=== PATIENT | female | born 1955 | race Caucasian/White ===

== ENCOUNTER 2016-12-11 19:20 | Inpatient (IN) | payer BC ==
--- NOTE | ~2016-12-11 | HP ---
History And Physical [place] [id number] [facility] [place]. [address] NAME: MARYSOL CLARK : 51 STATUS : DIS IN PAT#: [id number] AGE: 61 ADM/REG DATE : 12/11/16 MR#: [id number] REPORT SERV DATE: 01/17/17 DICTATED BY: EMILY ZACARIAS DATE: 01/17/17 REPORT STATUS : Draft TRANSCRIBED BY: ANANYA DATE: 01/17/17 DATE OF ADMISSION: 12/11/2016 REASON FOR ADMISSION: Hypotension and sepsis. HISTORY OF PRESENT ILLNESS: Ms. Clark is a 61-year-old woman with multiple medical problems including breast cancer with recurrent metastases, who presented to the hospital because of abdominal pain and hypotension. She was found to be hypotensive in the emergency department. She had been scheduled to start chemotherapy and was brought into the emergency department because of decreased alertness. She actually became more alert after a few boluses of fluids. PAST MEDICAL HISTORY: Significant for widely metastatic breast cancer, initially diagnosed in 2006. Pelvic obstruction, urinary obstruction, and recurrent urinary tract infections. SOCIAL HISTORY: Negative for tobacco abuse or alcohol abuse. FAMILY HISTORY: Significant for coronary artery disease. REVIEW OF SYSTEMS: Review of 10 systems was performed with help from her family who were at the bedside and is positive for what was noted above. PHYSICAL EXAMINATION: GENERAL: On exam, she appears chronically ill. Awake and alert. HEENT: Normocephalic and atraumatic. NECK: Supple. No lymphadenopathy. No JVD. CHEST: Symmetric with good expansion bilaterally. She is tachycardic with low blood pressure. LUNGS: Clear to auscultation and percussion bilaterally. CARDIOVASCULAR: She has S1 and S2, which are regular rate and rhythm. ABDOMEN: Benign. EXTREMITIES: She has no edema. No clubbing. No cyanosis. ASSESSMENT AND PLAN: Sepsis. The patient has urinary tract infection with hypotension in the setting of immunocompromise with systemic cytotoxic therapy and metastatic breast cancer. She has been started on broad-spectrum antibiotic therapy and aggressive fluid resuscitation. She has evidence already of early acute kidney injury in addition to her chronic kidney disease. So, we have requested a nephrology consult. Care was discussed with her family. CARI/ANANYA Emily History And Physical [address] [place]. [address] NAME: MARYSOL CLARK : 51 STATUS : DIS IN PAT#: [id number] AGE: 61 ADM/REG DATE : 12/11/16 MR#: [id number] REPORT SERV DATE: 01/17/17 DICTATED BY: EMILY ZACARIAS DATE: 01/17/17 REPORT STATUS : Draft TRANSCRIBED BY: MODL DATE: 01/17/17 Jorje Zacarias / [id number] CC: Jorje Ball M.D.
--- NOTE | ~2016-12-11 | CN ---
Consultation Report [facility] [address] [place]. [address] NAME: MARYSOL CLARK : 51 STATUS : ADM IN PAT#: [id number] AGE: 61 ADM/REG DATE : 12/11/16 MR#: [id number] REPORT SERV DATE: 12/12/16 DICTATED BY: OMERO MATUTE DATE: 12/12/16 REPORT STATUS : Draft TRANSCRIBED BY: MODL DATE: 12/12/16 CONSULTATION DATE OF CONSULTATION: 12/12/2016 CONSULTING GROUP: [facility]. SUBJECTIVE/CHIEF COMPLAINT: History of breast cancer, metastatic to the liver and brain, lactic acidosis, urosepsis. HISTORY OF PRESENT ILLNESS: Ms. Clark is a 61-year-old female with breast cancer in 2006, patient of Dr. Danielle Todd. According to records, the patient has had recurrent metastasis, pelvic mass adenocarcinoma, and possible brain and liver METS. She was admitted last night to the [facility] Emergency room for urosepsis and abdominal pain. She had a blood pressure on arrival of 87/61, her temperature is 98.8. She was getting steroids at home. She is also slated to start chemotherapy tomorrow. She was given normal saline, quite a few boluses, and her intake was upwards of 7.7 L in the past 24 hours. She was also given K-Dur twice 40 mEq each, Zosyn, and admitted to the ICU directly on nasal cannula, but then converted to BiPAP. She is on a Levophed drip and her systolic blood pressure currently is 93. She is also on normal saline at 175 mL an hour. Her urine output has been 45 mL in the past one and half hours. She went for CT abdomen and pelvis and CT head, which confirmed invasive nature of her cancer. She is a full code for now. The patient is oliguric, RHONDA, and need for bicarbonate and calcium. PAST MEDICAL HISTORY: Breast cancer in 2006, patient of Dr. Danielle Todd, pelvic obstruction, urinary obstruction. FAMILY HISTORY: Positive for cardiac disease. SOCIAL HISTORY: Has supportive , daughter, and son. According to records, her address is [place], [place]. REVIEW OF SYSTEMS: Positive for constipation, poor p.o. intake, hypotension, and weakness. All other review of systems unable to obtain are negative at this time. PHYSICAL EXAMINATION: VITAL SIGNS: Temperature 98.0, pulse of 127, blood pressure of 93/55, intake 7798, output 102. GENERAL: She has a friendly nature, middle age female, in mild pain from cancer. EYES: Extraocular movement is intact. No conjunctivitis. ENT: No facial droop. She is wearing a mask at this time, getting a PICC line placed, and has a dry oropharynx according to nursing staff. LYMPH: Unable to assess as the patient was gowned for PICC line placement. Consultation Report [address] [place]. [address] NAME: MARYSOL CLARK : 51 STATUS : ADM IN [facility]#: [id number] AGE: 61 ADM/REG DATE : 12/11/16 MR#: [id number] REPORT SERV DATE: 12/12/16 DICTATED BY: OMERO MATUTE DATE: 12/12/16 REPORT STATUS : Draft TRANSCRIBED BY: ANANYA DATE: 12/12/16 SKIN: She has dry skin. No obvious rash. HEART: S1, S2. Tachycardic, no edema. LUNGS: She is on BiPAP, her FiO2 setting is 80% with 5 of EPAP and 15 of IPAP. ABDOMINAL: Thin, nontender, soft. EXTREMITIES: Cool to touch. PSYCH: I discussed any psych issues with team, appears that she is mentally stable. She has a pleasant attitude. LABORATORIES: Sodium 136, potassium 5.5, chloride 107, bicarb of 14, BUN of 35, creatinine 1.66, glucose 92, calcium 5.5, magnesium 1.9. Phosphorus 3.2, albumin 0.9, alkaline phosphatase 229. Lactate 3.6, down from 1.6. Amylase 461. AST 52. White count 13.3, hemoglobin 10.4, hematocrit 31.3, and platelets 69. Urinalysis specific gravity 1.018, pH of 5.0, 100 protein, less than 2 urobilinogen, moderate leukocytes, large blood, all else negative. Blood cultures x2. Gram-negative bacilli. CT abdomen and pelvis shows mesentery metastasis and pancreatic pseudocysts. CT of the brain shows small tumor, multifocal tumor, suggest metastasis. ASSESSMENT AND PLAN: Ms. Clark is a 61-year-old female with metastatic aggressive breast cancer, now affecting multiple organs. She is in shock, debilitated, hypocalcemia, and lactic acidosis. Renal. Her creatinine bumped from 0.58-1.66 in the past 24 hours. GFR is essentially zero. I would not offer dialysis due to her multiple and poor prognostic comorbidities. Her intake is greater than output by 7.6 L yesterday. PLAN: 1. Conservative management throughout regarding renal disorder. 2. Two amps of sodium bicarbonate given now. 3. One amp of calcium gluconate given now. 4. No more potassium supplements that she has no GFR at this time. 5. Protein malnutrition, difficult to give feeds, but may consider as a palliative measure. 6. Address code status with Dr. Danielle Todd. Family will talk and try to set up appropriate disposition, most likely hospice. RAEGAN/ANANYA Omero Matute M.D. / [id number] CC: Consultation Report [address] [address] NAME: MARYSOL CLARK : 51 STATUS : ADM IN PAT#: [id number] AGE: 61 ADM/REG DATE : 12/11/16 MR#: [id number] REPORT SERV DATE: 12/12/16 DICTATED BY: OMERO MATUTE DATE: 12/12/16 REPORT STATUS : Draft TRANSCRIBED BY: ANANYA DATE: 12/12/16 Jorje Ball M.D.
--- NOTE | ~2016-12-11 | CN ---
Consultation Report [facility] [address] [place]. [address] NAME: MARYSOL CLARK : 51 STATUS : ADM IN PAT#: [id number] AGE: 61 ADM/REG DATE : 12/11/16 MR#: [id number] REPORT SERV DATE: 12/12/16 DICTATED BY: Carmine MANUEL DATE: 12/12/16 REPORT STATUS : Draft TRANSCRIBED BY: ANANYA DATE: 12/12/16 DATE OF CONSULTATION: CONSULTATION REQUESTED BY: Jenny Waterman M.D. CHIEF COMPLAINT: Persistent hydronephrosis with indwelling double J stents. HISTORY OF PRESENT ILLNESS: Ms Clark is a pleasant 61-year-old, white female, well known to me, who was recently seen with bilateral hydronephrosis and acute renal failure with a creatinine of over 7. She had bilateral double J stents placed on 11/18/2016 and her creatinine normalized to about 1.15. She had biopsy-proven recurrence of pelvic metastases from breast cancer. She was admitted through the emergency room with lethargy, hypotension, and presumed sepsis on 12/11. A CT scan showed persistent bilateral hydronephrosis, but her creatinine was 0.58 on admission. It is now 1.8, but she has been hypotensive and that may be a reasonable explanation. Garcia was placed for about 100 mL and the nurse felt some abnormalities in the pelvis, which I think is due to her metastatic cancers. It was noted that her platelet count was 45,000 and her sepsis appears to be worsening even on therapy. PAST MEDICAL HISTORY: Breast cancer status post radiation with brain and pelvic metastases. PAST SURGICAL HISTORY: 1. Left mastectomy in 2006. 2. Cysto, bilateral retrograde, bilateral double-J stent placements on 11/18/2016. 3. Vaginal biopsy in November of 2016. CURRENT MEDICATIONS: Solu-Cortef, Femara, Protonix, Zosyn and vancomycin. ALLERGIES: NO KNOWN DRUG ALLERGIES. FAMILY HISTORY: Positive for renal failure of unknown etiology. No other history. SOCIAL HISTORY: The patient is . Denies use of tobacco or alcohol. REVIEW OF SYSTEMS: A full twelve-point review of systems is negative except as noted above. PHYSICAL EXAMINATION: GENERAL: A 61-year-old, white female, currently on a breathing mask, no current respiratory distress. VITAL SIGNS: Afebrile. Blood pressure is less than 80 systolic. HEART: Regular rate and rhythm. ABDOMEN: Apparently distended. Tenderness could not be assessed. No CVA abnormalities. : No suprapubic distention. Indwelling Garcia catheter with concentrated urine draining. EXTREMITIES: No peripheral edema noted. Consultation Report [place] [id number] [place] [address] NAME: MARYSOL CLARK : 51 STATUS : ADM IN PAT#: [id number] AGE: 61 ADM/REG DATE : 12/11/16 MR#: [id number] REPORT SERV DATE: 12/12/16 DICTATED BY: Carmine MANUEL DATE: 12/12/16 REPORT STATUS : Draft TRANSCRIBED BY: ANANYA DATE: 12/12/16 PERTINENT LABORATORY: Creatinine as noted above. Platelet count 45,000, hemoglobin 10.4, INR 2.7. Urinalysis shows red cells and white cells with many bacteria, culture pending. IMPRESSION: 1. Metastatic breast cancer. 2. Bilateral ureteral obstruction due to pelvic metastatic disease. 3. Hypertension, likely sepsis. PLAN: As far as her creatinine is concerned, it was normal less than 24 hours ago, so I think that this change is more likely due to her hypotension in overall picture of sepsis that it is due to external stent compression. I would simply watch things for now. The next move would be bilateral percutaneous nephrostomy tubes, which she is currently not a candidate due to her low platelet count and her overall severity of illness, I do not think that would help much. I will continue to follow her and watch her output. At this point, her prognosis seems a grim, but persistent. Resuscitation is continuing. MARCOS/ANANYA Carmine Manuel M.D. / [id number] CC: Jorje Ball M.D. Carlos Baleeiro, M.D. Brooke R. Daniel, M.D.
--- NOTE | ~2016-12-11 | DS ---
Discharge Summary [facility] [address] [place]. [address] NAME: MARYSOL CLARK : 51 STATUS : ADM IN PAT#: [id number] AGE: 61 ADM/REG DATE : 12/11/16 MR#: [id number] REPORT SERV DATE: 12/13/16 DICTATED BY: ARELY WATERMAN DATE: 12/13/16 REPORT STATUS : Draft TRANSCRIBED BY: MODMana DATE: 12/13/16 ADMISSION DATE: 12/11/2016 DISCHARGE DATE: 12/13/2016 DATE OF : 12/13/2016 at 0913 hours. ADMISSION DIAGNOSES: 1. Abdominal pain. Decreased p.o. intake. 2. Encephalopathy. 3. Hypotension, possible sepsis. 4. Known history of breast cancer with recurrence and metastasis to the pelvis and brain. 5. History of hypertension. 6. Urinary obstruction status post ureteral stent placement. DISCHARGE DIAGNOSES: 1. Abdominal pain. Decreased p.o. intake. 2. Encephalopathy. 3. Hypotension, possible sepsis. 4. Known history of breast cancer with recurrence and metastasis to the pelvis and brain. 5. History of hypertension. 6. Urinary obstruction status post ureteral stent placement. 7. Septic shock secondary to Escherichia coli. 8. Probable ischemic bowel. 9. Acute kidney injury. 10.Coagulopathy secondary to sepsis. 11.Hyperkalemia. 12.Persistent lactic acidosis. CONSULTATIONS DURING THIS HOSPITALIZATION: 1. Dr. Carmine Stearns, Urology. 2. Dr. Danielle Todd, Hematology/Oncology. 3. Dr. Jacky Hua, General Surgery. HOSPITAL COURSE: This is a 61-year-old patient, who was diagnosed with breast cancer in 2006. Underwent treatment and did relatively well until recently when she was found to have recurrence of her breast cancer with metastases to the pelvis that turned out to be adenocarcinoma. This caused obstructive nephropathy for which she required urinary stent placement done by Dr. Stearns. The patient also had metastasis to the brain and underwent irradiation and was on Decadron. She had issues with constipation at home. She became weaker, became somewhat encephalopathic, could not tolerate oral intake, and was subsequently brought in. She was hypotensive into the emergency room. She was hypotensive in the ER. Blood cultures were done. The patient was started on antibiotics, Zosyn and vancomycin. Urine output was low. Garcia catheter was changed. CT scan of the abdomen and pelvis was done twice, since the patient had a distended firm abdomen on the second evaluation in the MICU. There was no evidence of pneumatosis or perforated bowel; however, there was a dilated gallbladder, dilated common bile duct, suspected possible soft tissue Discharge Summary [place] [id number] [place]. [address] NAME: MARYSOL CLARK : 51 STATUS : ADM IN [facility]#: [id number] AGE: 61 ADM/REG DATE : 12/11/16 MR#: [id number] REPORT SERV DATE: 12/13/16 DICTATED BY: ARELY WATERMAN DATE: 12/13/16 REPORT STATUS : Draft TRANSCRIBED BY: ANANYA DATE: 12/13/16 mass noted in the duodenum, evidence of some mild pancreatitis, and ascites, and stool throughout the colon. The patient was noted to be coagulopathic with an increased INR, and decreased platelet count more than likely on the basis of sepsis. Blood cultures eventually grew out E. coli. E. coli was not a carbapenem resistant, and so antibiotics Zosyn and vancomycin were continued. The patient required placement of a PICC line because she required pressor therapy. Levophed was started as per weight based protocol and was maxed out at 1 mcg/kg per minute. Vasopressin was then added at 0.04 units. The patient was also placed on stress dose steroids since she had been on Decadron at home. BiPAP therapy was used for increasing shortness of breath. Code status was discussed with the family and Dr. Danielle Todd. The patient was made a no intubation, no shock, no CPR on 12/12/2016; however, care was continued. The patient did not improve throughout the day. In fact, her lactic acid level went from below 2 to greater than 8. Significance of this, this is more than likely indicative of ischemic bowel which was also the assessment of General Surgery and Dr. Danielle Todd. The patient was not a candidate for surgical intervention. As far as her acute kidney injury is concerned, she was not a candidate for dialysis either. Further discussion with the patient later on 12/12/2016 regarding code status was that we were to continue present care, but without escalation in addition to the no shock, no CPR, and no intubation. The patient was sustained throughout the night and into the morning of 12/13/2016, at which time, all lab work and the patient's condition was reviewed. There was no significant improvement in the patient's condition. After further discussion with the family, it was decided to withdraw care on the patient by discontinuing pressors, lab work, and chest x-rays, and keeping the patient comfortable. The patient at 9:13 a.m. on 12/13/2016 shortly after her Levophed and vasopressin were discontinued. Family was at the bedside, and Dr. Danielle Todd was notified, and came to see the patient and family. /MODL Arely Waterman M.D. / [id number] CC: Jorje Ball M.D.
[~2016-12-11 19:20] MED LIST: DEX4 PO; FEMARA PO; MIRALAX POWDER1 PKT PO; NORV5 PO; SENTAB PO; T PO; ZOFRAN8 PO
[2016-12-11 19:54] LABS: MEAN PLATELET VOLUME 10.4 fL (9.2-13.0); RBC DISTRIBUTION WIDTH 15.2 % (12.0-16.0)
[2016-12-11 19:59] LABS: ER CBC TAT 0 Hrs 14 Mins; HEMOGLOBIN 7.3 g/dL (12.0-16.0); RED CELL COUNT 2.43 10/6/uL (4.0-5.6); WHITE BLOOD CELLS 3.9 10/3/uL (4.5-10.5)
[2016-12-11 20:00] LABS: HEMATOCRIT 21.1 % (36.0-48.0); INTERNATIONAL NORMAL RATI 2.7 UNITS (-); MANUAL DIFF YES %; MEAN CORPUS HGB CONC 34.6 g/dL (32.0-36.0); MEAN CORPUSCULAR VOLUME 86.8 fL (80-100); PLATELET COUNT 78 10/3/uL (150-400)
[2016-12-11 20:01] LABS: PARTIAL THROMBO TIME 54.1 SEC (22.5-37.2)
[2016-12-11 20:04] LABS: PROTIME (NOT ORD) 28.3 SEC (12.0-14.5)
[2016-12-11 20:08] LABS: CHLORIDE, SERUM 120 MMOL/L (96-112); SGOT(AST) 16 U/L (5-40); SGPT(ALT) 21 U/L (5-65); SODIUM, SERUM 144 MMOL/L (135-148)
[2016-12-11 20:10] LABS: BUN (BLOOD UREA NITROGEN) 23 MG/DL (6-23); CO2 (CARBON DIOXIDE) 13 MMOL/L (24-34); CREATININE 0.58 MG/DL (0.55-1.02); GFR AFRICAN AMERICAN 114 ML/MIN (>=60); GFR NON AFRICAN AMERICAN 98 ML/MIN (>=60); GLUCOSE, SERUM 53 MG/DL (60-99); LACTATE 1.6 MMOL/L (0.3-2.4); POTASSIUM, SERUM 2.2 MMOL/L (3.5-5.3)
[2016-12-11 20:11] LABS: A/G RATIO 0.6 (0.7-1.9); ALBUMIN 0.7 G/DL (3.5-5.0); ALKALINE PHOSPHATASE 112 U/L (45-117); CALCIUM, SERUM < 5.0 MG/DL (8.5-10.4); GLOBULIN 1.2 G/DL (2.5-4.1); TOTAL BILIRUBIN 1.2 MG/DL (0-1.2); TOTAL PROTEIN 1.9 G/DL (6.0-8.5)
[2016-12-11 20:13] LABS: BAND NEUTROPHILS 45 %; BURR CELLS 1+ (3-10/OIF) (0-2/OIF); ER DIFF TAT 0 Hrs 28 Mins; IMMATURE GRANS ABSOLUTE (CALC) 0.04 10/3/uL (0.0-0.11); METAMYELOCYTES 1 %; NEUTROPHILS ABSOLUTE (CALC) 3.86 10/3/uL (2.02-8.40); PLATELET ESTIMATE DEC (ADEQUATE); SEGMENTED NEUTROPHIL (0) 54 %; TOTAL NUCLEATED CELLS 100
[2016-12-11] MEDS ORDERED: CONSTULOSE PO (20:42)
[2016-12-11] MEDS ORDERED: BONIVA150 MG PO (20:43)
[2016-12-11] MEDS ORDERED: FLUCON1 PO (20:43)
[2016-12-11 20:44] LABS: PROCALCITONIN 42.11 ng/mL (<0.5)
[2016-12-11] MEDS ORDERED: ATV.5 PO (20:45)
[2016-12-11] MEDS ORDERED: PROTONIX PO (20:46)
[2016-12-11] MEDS ORDERED: DEX4 (20:55)
[2016-12-11] MEDS ORDERED: FEMARA PO (20:56)
[2016-12-11] MEDS ORDERED: ZOFRAN8 PO (20:56)
[2016-12-11] MEDS ORDERED: NORV5 PO (20:56)
[2016-12-11] MEDS ORDERED: DEX4 PO (20:56)
[2016-12-11] MEDS ORDERED: MIRALAX POWDER1 PKT PO (20:57)
[2016-12-11] MEDS ORDERED: XELODA (20:58)
[2016-12-11 21:01] LABS: ASCORBIC ACID (UR NOT ORDER) NEG (NEG); BILIRUBIN, URINE NEGATIVE (NEG); ER URINALYSIS TAT 0 Hrs 09 Mins; KETONE, URINE NEGATIVE (NEG); LEUKOCYTE ESTERASE(NOT OR MOD (NEG); NITRITE (URINE) NEG (NEG); WBC (NOT ORDERED) (RFLEX) 72 (0-5)
[2016-12-11] MEDS ORDERED: XELODA PO (22:06)
[2016-12-12 01:43] LABS: LACTATE 4.1 MMOL/L (0.3-2.4)
[2016-12-12 04:25] LABS: BE (BASE EXCESS) -13.8 MEQ/L (0 +/- 2.5); CARBOXYHEMOGLOBIN 0.3 % (0-3); HCO3 (ACTUAL BICARBONATE) 12.3 MEQ/L (23-27); INSTRUMENT SERIAL # 8083; METHEMOGLOBIN 0.5 % (0-3); PCO2 (CO2 TENSION) 30 MMHG (35-45); PO2 (O2 TENSION) 55 MMHG (79-93); pH 7.24 (7.37-7.43)
[2016-12-12 04:26] LABS: ALLENS TEST Pos; DEVICE NC; HEMOBLOGIN CONTENT 10.9 G/DL (12-16); O2 CONTENT 12.4 VOL% (18-24); OPERATOR ID 16469; SAMPLE Arterial
[2016-12-12 05:13] LABS: MEAN CORPUS HGB CONC 33.5 g/dL (32.0-36.0); MEAN CORPUSCULAR HEMOGLOB 29.5 pg (26.0-34.0); MEAN CORPUSCULAR VOLUME 88.1 fL (80-100); MEAN PLATELET VOLUME 11.6 fL (9.2-13.0); PLATELET COUNT 69 10/3/uL (150-400); RBC DISTRIBUTION WIDTH 15.7 % (12.0-16.0)
[2016-12-12 05:16] LABS: HEMOGLOBIN 10.4 g/dL (12.0-16.0); MANUAL DIFF YES %; RED CELL COUNT 3.52 10/6/uL (4.0-5.6); WHITE BLOOD CELLS 13.3 10/3/uL (4.5-10.5)
[2016-12-12 05:52] LABS: BAND NEUTROPHILS 42 %; BURR CELLS 1+ (3-10/OIF) (0-2/OIF); IMMATURE GRANS ABSOLUTE (CALC) 1.33 10/3/uL (0.0-0.11); METAMYELOCYTES 10 %; MONOCYTES 1 %; MONOCYTES ABSOLUTE (CALC) 0.13 10/3/uL (0.21-1.20); NEUTROPHILS ABSOLUTE (CALC) 11.84 10/3/uL (2.02-8.40); PLATELET ESTIMATE DEC (ADEQUATE); SEGMENTED NEUTROPHIL (0) 47 %; TOTAL NUCLEATED CELLS 100; VACUOLATED NEUTROPHILES MOD
[2016-12-12 06:12] LABS: PROCALCITONIN 120.21 ng/mL (<0.5)
[2016-12-12 06:57] LABS: BUN (BLOOD UREA NITROGEN) 36 MG/DL (6-23); CALCIUM, SERUM 5.7 MG/DL (8.5-10.4); CHLORIDE, SERUM 105 MMOL/L (96-112); CO2 (CARBON DIOXIDE) 16 MMOL/L (24-34); CREATININE 1.66 MG/DL (0.55-1.02); GFR AFRICAN AMERICAN 38 ML/MIN (>=60); GFR NON AFRICAN AMERICAN 32 ML/MIN (>=60); GLUCOSE, SERUM 96 MG/DL (60-99); POTASSIUM, SERUM 5.7 MMOL/L (3.5-5.3); SGPT(ALT) 43 U/L (5-65); SODIUM, SERUM 136 MMOL/L (135-148)
[2016-12-12 06:58] LABS: A/G RATIO 0.4 (0.7-1.9); ALBUMIN 0.9 G/DL (3.5-5.0); ALKALINE PHOSPHATASE 229 U/L (45-117); GLOBULIN 2.3 G/DL (2.5-4.1); SGOT(AST) 52 U/L (5-40); TOTAL BILIRUBIN 3.1 MG/DL (0-1.2); TOTAL PROTEIN 3.2 G/DL (6.0-8.5)
[2016-12-12 09:22] LABS: BUN (BLOOD UREA NITROGEN) 35 MG/DL (6-23); CHLORIDE, SERUM 107 MMOL/L (96-112); CREATININE 1.66 MG/DL (0.55-1.02); GFR AFRICAN AMERICAN 38 ML/MIN (>=60); GFR NON AFRICAN AMERICAN 32 ML/MIN (>=60); GLUCOSE, SERUM 92 MG/DL (60-99); PHOSPHORUS, SERUM 3.2 MG/DL (2.5-4.5); POTASSIUM, SERUM 5.5 MMOL/L (3.5-5.3); SODIUM, SERUM 136 MMOL/L (135-148)
[2016-12-12 09:23] LABS: CALCIUM, SERUM 5.5 MG/DL (8.5-10.4); CO2 (CARBON DIOXIDE) 14 MMOL/L (24-34)
[2016-12-12 09:28] LABS: PARTIAL THROMBO TIME 39.3 SEC (22.5-37.2)
[2016-12-12 09:29] LABS: PROTIME (NOT ORD) 22.3 SEC (12.0-14.5)
[2016-12-12 12:33] LABS: BUN (BLOOD UREA NITROGEN) 35 MG/DL (6-23); CHLORIDE, SERUM 107 MMOL/L (96-112); CO2 (CARBON DIOXIDE) 16 MMOL/L (24-34); CREATININE 1.87 MG/DL (0.55-1.02); GFR AFRICAN AMERICAN 33 ML/MIN (>=60); GFR NON AFRICAN AMERICAN 28 ML/MIN (>=60); GLUCOSE, SERUM 90 MG/DL (60-99); POTASSIUM, SERUM 5.2 MMOL/L (3.5-5.3); SODIUM, SERUM 138 MMOL/L (135-148)
[2016-12-12 12:34] LABS: CALCIUM, SERUM 5.7 MG/DL (8.5-10.4)
[2016-12-12 12:43] LABS: HEMATOCRIT 33.4 % (36.0-48.0); HEMOGLOBIN 11.1 g/dL (12.0-16.0); MEAN CORPUS HGB CONC 33.2 g/dL (32.0-36.0); MEAN CORPUSCULAR HEMOGLOB 29.4 pg (26.0-34.0); MEAN CORPUSCULAR VOLUME 88.6 fL (80-100); MEAN PLATELET VOLUME 12.4 fL (9.2-13.0); NUCLEATED RED BLOOD CELLS 0.3 /100WBC (0-0); RED CELL COUNT 3.77 10/6/uL (4.0-5.6); WHITE BLOOD CELLS 14.8 10/3/uL (4.5-10.5)
[2016-12-12 12:44] LABS: MANUAL DIFF YES %; PLATELET COUNT 45 10/3/uL (150-400)
[2016-12-12 12:49] LABS: BAND NEUTROPHILS 46 %; IMMATURE GRANS ABSOLUTE (CALC) 1.92 10/3/uL (0.0-0.11); METAMYELOCYTES 12 %; MYELOCYTES 1 %; NEUTROPHILS ABSOLUTE (CALC) 12.88 10/3/uL (2.02-8.40); RBC MORPHOLOGY NORM (NORMAL); SEGMENTED NEUTROPHIL (0) 41 %; TOTAL NUCLEATED CELLS 100
[2016-12-12 13:32] LABS: DIRECT BILIRUBIN 1.9 MG/DL (0.0-0.4); INDIRECT BILIRUBIN(NOT ORDER) 0.8 MG/DL (0.1-0.9); SGOT(AST) 59 U/L (5-40); SGPT(ALT) 46 U/L (5-65); TOTAL BILIRUBIN 2.7 MG/DL (0-1.2); TOTAL PROTEIN 3.8 G/DL (6.0-8.5)
[2016-12-12 13:33] LABS: ALBUMIN 1.1 G/DL (3.5-5.0); ALKALINE PHOSPHATASE 282 U/L (45-117)
[2016-12-12 14:15] LABS: CREATININE, URINE 37.8 MG/DL
[2016-12-12 16:39] LABS: HEMATOCRIT 34.3 % (36.0-48.0); HEMOGLOBIN 11.4 g/dL (12.0-16.0); MEAN CORPUS HGB CONC 33.2 g/dL (32.0-36.0); MEAN CORPUSCULAR HEMOGLOB 29.6 pg (26.0-34.0); MEAN CORPUSCULAR VOLUME 89.1 fL (80-100); RBC DISTRIBUTION WIDTH 16.1 % (12.0-16.0); RED CELL COUNT 3.85 10/6/uL (4.0-5.6); WHITE BLOOD CELLS 14.4 10/3/uL (4.5-10.5)
[2016-12-12 16:41] LABS: PLATELET COUNT 40 10/3/uL (150-400)
[2016-12-12 16:42] LABS: MANUAL DIFF YES %
[2016-12-12 16:45] LABS: INTERNATIONAL NORMAL RATI 2.2 UNITS (-)
[2016-12-12 16:52] LABS: ALBUMIN 1.1 G/DL (3.5-5.0); BUN (BLOOD UREA NITROGEN) 38 MG/DL (6-23); CALCIUM, SERUM 5.9 MG/DL (8.5-10.4); CHLORIDE, SERUM 106 MMOL/L (96-112); CO2 (CARBON DIOXIDE) 17 MMOL/L (24-34); CREATININE 1.99 MG/DL (0.55-1.02); GFR AFRICAN AMERICAN 30 ML/MIN (>=60); GFR NON AFRICAN AMERICAN 26 ML/MIN (>=60); GLUCOSE, SERUM 80 MG/DL (60-99); PHOSPHORUS, SERUM 4.1 MG/DL (2.5-4.5); SODIUM, SERUM 138 MMOL/L (135-148)
[2016-12-12 17:06] LABS: BAND NEUTROPHILS 45 %; IMMATURE GRANS ABSOLUTE (CALC) 3.02 10/3/uL (0.0-0.11); LYMPHOCYTES 1 %; LYMPHOCYTES ABSOLUTE (CALC) 0.14 10/3/uL (0.67-4.30); METAMYELOCYTES 15 %; MONOCYTES 2 %; MONOCYTES ABSOLUTE (CALC) 0.29 10/3/uL (0.21-1.20); MYELOCYTES 6 %; NEUTROPHILS ABSOLUTE (CALC) 10.94 10/3/uL (2.02-8.40); SEGMENTED NEUTROPHIL (0) 31 %; TOTAL NUCLEATED CELLS 100
[2016-12-12 17:08] LABS: HELMET CELLS OCC (0-2/OIF); SCHISTOCYTES OCC (0-2/OIF)
[2016-12-13 05:13] LABS: HEMATOCRIT 33.2 % (36.0-48.0); INTERNATIONAL NORMAL RATI 2.2 UNITS (-); MEAN CORPUS HGB CONC 33.1 g/dL (32.0-36.0); MEAN CORPUSCULAR HEMOGLOB 29.2 pg (26.0-34.0); MEAN CORPUSCULAR VOLUME 88.1 fL (80-100); PROTIME (NOT ORD) 24.4 SEC (12.0-14.5); RBC DISTRIBUTION WIDTH 16.7 % (12.0-16.0); RED CELL COUNT 3.77 10/6/uL (4.0-5.6)
[2016-12-13 05:22] LABS: PLATELET COUNT 16 10/3/uL (150-400); WHITE BLOOD CELLS 24.4 10/3/uL (4.5-10.5)
[2016-12-13 05:23] LABS: MANUAL DIFF YES %
[2016-12-13 05:45] LABS: ALBUMIN 0.9 G/DL (3.5-5.0); BUN (BLOOD UREA NITROGEN) 41 MG/DL (6-23); CHLORIDE, SERUM 108 MMOL/L (96-112); CO2 (CARBON DIOXIDE) 17 MMOL/L (24-34); CREATININE 1.85 MG/DL (0.55-1.02); GFR AFRICAN AMERICAN 33 ML/MIN (>=60); GFR NON AFRICAN AMERICAN 28 ML/MIN (>=60); SGOT(AST) 127 U/L (5-40); SGPT(ALT) 77 U/L (5-65); SODIUM, SERUM 137 MMOL/L (135-148); TOTAL PROTEIN 3.8 G/DL (6.0-8.5)
[2016-12-13 05:46] LABS: A/G RATIO 0.3 (0.7-1.9); ALKALINE PHOSPHATASE 248 U/L (45-117); CALCIUM, SERUM 5.6 MG/DL (8.5-10.4); DIRECT BILIRUBIN 1.1 MG/DL (0.0-0.4); GLOBULIN 2.9 G/DL (2.5-4.1); GLUCOSE, SERUM 103 MG/DL (60-99); INDIRECT BILIRUBIN(NOT ORDER) 0.6 MG/DL (0.1-0.9); PHOSPHORUS, SERUM 5.8 MG/DL (2.5-4.5); TOTAL BILIRUBIN 1.7 MG/DL (0-1.2)
[2016-12-13 06:48] LABS: PROCALCITONIN > 200.00 ng/mL (<0.5)
[2016-12-13 07:19] LABS: ANISOCYTOSIS 1+ (5-10/OIF) (0-5/OIF); BAND NEUTROPHILS 22 %; IMMATURE GRANS ABSOLUTE (CALC) 0.73 10/3/uL (0.0-0.11); METAMYELOCYTES 3 %; NEUTROPHILS ABSOLUTE (CALC) 23.67 10/3/uL (2.02-8.40); PLATELET ESTIMATE DEC (ADEQUATE); SEGMENTED NEUTROPHIL (0) 75 %; TOTAL NUCLEATED CELLS 100
== END 2016-12-13 11:51 | disposition expired | DRG 871 ==
LOC: ER 19:20 → MIC 21:44
PROVIDERS: Internal Medicine Nephrology; Internal Medicine Pulmonary Disease; Nurse Practitioner Acute Care
PROC: 5A09357 Assistance with Respiratory Ventilation, Less than 24 Consecutive Hours, Continuous Positive Airway Pressure (ICD-10-PCS; principal; 2016-12-12)
PROC: 02HV33Z Insertion of Infusion Device into Superior Vena Cava, Percutaneous Approach (ICD-10-PCS; 2016-12-12)
PROC: 4A02X4A Measurement of Cardiac Electrical Activity, Guidance, External Approach (ICD-10-PCS; 2016-12-12)
DX: A41.51 Sepsis due to Escherichia coli [E. coli] (principal); R65.21 Severe sepsis with septic shock; D65 Disseminated intravascular coagulation [defibrination syndrome]; G93.41 Metabolic encephalopathy; N17.9 Acute kidney failure, unspecified; K55.9 Vascular disorder of intestine, unspecified; C79.31 Secondary malignant neoplasm of brain; E87.2 Acidosis; C79.51 Secondary malignant neoplasm of bone; N13.30 Unspecified hydronephrosis; E87.5 Hyperkalemia; I10 Essential (primary) hypertension; Z66 Do not resuscitate; Z51.5 Encounter for palliative care; Z85.3 Personal history of malignant neoplasm of breast
CPT/HCPCS: 36415; 36569; 36600; 70450; 71010; 74000; 74176; 77001; 80048; 80053; 80069; 80076; 81001; 82150; 82248; 82330; 82570; 82805; 83605; 83690; 83735; 84100; 84145; 84540; 85025; 85384; 85610; 85730; 86850; 86900; 86901; 86920; 87040; 87077; 87086; 87150; 87186; 87641; 93005; 94660; 96365; 96368; 96375; 99291; A9270-GY; C1751; C1769; C9113; J0610; J1720; J2543; J3370